=== PATIENT | female | born 1950 | race Caucasian/White ===

== ENCOUNTER 2021-05-26 06:55 | Day surgery (SDC) | payer MEDICARE, OTHER ==
[~2021-05-26 06:55] MED LIST: Acetaminophen 325 MG Tab PO SCH; Lactated Ringers 1,000 ML IV SCH; Lidocaine 1%/Sod Bicarbonate in NS 8.4% 1 ML Syringe IDERM PRN; Pregabalin 25 MG Cap PO SCH; Sodium Chloride 0.9% 10 ML Syringe FLUSH PRN; Sodium Chloride 0.9% 10 ML Syringe FLUSH SCH; oxyCODONE ER 10 MG TAB.ER PO SCH
[2021-05-26] MEDS ORDERED: Lidocaine 1% 5 ML VIAL ONE (07:34)
[2021-05-26] MEDS ORDERED: Propofol 200 MG/20 ML SDV ONE ×2 (07:35→09:02)
[2021-05-26] MEDS ORDERED: Midazolam 1 MG/ML 2 ML SDV ONE (07:35)
[2021-05-26] MEDS ORDERED: ceFAZolin 1 GM Vial ONE (07:38)
[2021-05-26] MEDS ORDERED: Ondansetron 4 MG/2 ML SDV ONE (08:39)
[2021-05-26] MEDS ORDERED: ePHEDrine 50 MG/ML SDV ONE (08:57)
[2021-05-26] MEDS ORDERED: Ondansetron 4 MG/2 ML SDV IVPUSH PRN (08:59)
[2021-05-26] MEDS ORDERED: fentaNYL 100 MCG/2 ML SDV IVPUSH PRN (08:59)
[2021-05-26] MEDS ORDERED: HYDROmorphone 0.5 MG/0.5 ML Syringe IVPUSH PRN (08:59)
[2021-05-26] MEDS: Vancomycin 1 GM SDV ONE ×2 (09:16→09:34)
[2021-05-26] MEDS: Morphine 8 MG, EPINEPHrine 0.3 MG, Cefuroxime 750 MG, Ketorolac 30 MG, Sodium Chloride ... PRN ×10 (09:17→09:34)
[2021-05-26] MEDS ORDERED: Ketorolac 15 MG/ML SDV ONE ×2 (09:41→09:42)
[2021-05-26] MEDS ORDERED: oxyCODONE 5 MG Tab PO ONE (10:35)
== END 2021-05-26 13:29 | disposition home or self-care (01) ==
LOC: JD.SDS 06:55
PROVIDERS: ATTEND Orthopaedic Surgery
DX: M16.12 Unilateral primary osteoarthritis, left hip (principal); I10 Essential (primary) hypertension; Z79.899 Other long term (current) drug therapy
CPT/HCPCS: 0055T; 27130; 36415; 73501; 86850; 86900; 86901; 97116; 97161; A9270; C1713; C1776; J0171; J0690; J0697; J1885; J2250; J2270; J2405; J2704; J3370; J7120; 01214; 99100